=== PATIENT | male | born 1960 | race Two or more races ===

== ENCOUNTER 2024-01-02 13:12 | Emergency (ER) | payer OTHER ==
[~2024-01-02] VITALS: Ht 185.4 cm; Wt 102.1 kg
[~2024-01-02 13:12] MED LIST: ANTIVERT12.5 MG PO; PRILOSEC20 MG PO; SKELAXIN800 MG PO; TRILISATE PO
[2024-01-02 13:25] VITALS: BP 174/97; O2SAT 100
[2024-01-02] MEDS ORDERED: TRAMADOL HCL 50 MG TABLET PO ONE (13:45)
[2024-01-02] MEDS ORDERED: TRIAMCINOLONE ACETONIDE 40 MG/ML VIAL IM ONE (13:45)
[2024-01-02] MEDS ORDERED: GABAPENTIN 100 MG CAPSULE PO ONE (13:45)
== END 2024-01-02 16:48 | disposition home or self-care (01) ==
LOC: ER 13:14
DX: M54.31 Sciatica, right side (principal); I10 Essential (primary) hypertension; Z88.6 Allergy status to analgesic agent; Z88.0 Allergy status to penicillin; M51.369 Other intervertebral disc degeneration, lumbar region without mention of lumbar back pain or lower extremity pain